=== PATIENT | female | born 1965 | race Caucasian/White ===

== ENCOUNTER 2022-07-28 11:07 | Emergency (ER) | payer OTHER ==
[~2022-07-28] VITALS: Ht 160 cm; Wt 75.0 kg
[2022-07-28 11:23] VITALS: BP 122/87
[2022-07-28] MEDS: acetaminophen 325mg tablet PO ONE (14:46)
== END 2022-07-28 16:13 | disposition home or self-care (01) ==
LOC: ER 11:08
DX: S42.252A Displaced fracture of greater tuberosity of left humerus, initial encounter for closed fracture (principal); Z88.1 Allergy status to other antibiotic agents; M25.512 Pain in left shoulder; W19.XXXA Unspecified fall, initial encounter; Y93.89 Activity, other specified; Y92.89 Other specified places as the place of occurrence of the external cause; Y99.8 Other external cause status
CPT/HCPCS: 71045; 73030; 73200; 99284; A4565